=== PATIENT | male | born 1985 | race Caucasian/White ===

== ENCOUNTER 2022-06-10 19:49 | Emergency (ER) | payer SELFPAY ==
[~2022-06-10] VITALS: Ht 172.7 cm; Wt 86.6 kg
[2022-06-10] MEDS ORDERED: BACTRIM DS TAB1 EACH PO (20:49)
== END 2022-06-10 21:04 | disposition home or self-care (01) ==
LOC: ED 19:49
DX: L03.312 Cellulitis of back [any part except buttock and flank] (principal)
CPT/HCPCS: 99283; A9270